=== PATIENT | male | born 1950 | race Caucasian/White ===

== ENCOUNTER 2019-06-29 13:13 | Outpatient (CLI) | payer OTHER, SELFPAY ==
--- NOTE | ~2019-06-29 | CT_ITS ---
EXAMINATION: CT soft tissue neck chest w EXAM DATE: 06/29/2019 14:57 INDICATION: Lymphoma. TECHNIQUE: Spiral CT of the neck and chest was performed following intravenous injection of 75 mL Omn ipaque 350. Axial, coronal and sagittal images of the neck were reviewed. Axial, coronal and sagitt al images of the chest were reviewed. Coronal maximum intensity pixel images of chest reviewed. The dose-length product (DLP) for this examination was 956.07 mGy-cm. The exposure was tailored accordi ng to patient size (auto mA exposure control), and iterative reconstruction (ASIR) was used as additi onal dose reduction technique. Comparison is made to prior examination from 01/02/2019. FINDINGS: NECK: There is a right-sided Chemo-Port. The thyroid gland is unremarkable. The submandibular and parotid glands are symmetric. There is no cervical lymphadenopathy. There are no masses identified . The airway is unremarkable. Parapharyngeal and pre-glottic fat planes are preserved. Mild bi lateral carotid bulb arterial sclerosis without stenosis. Congenitally aberrant right subclavian salomón ry. Dense aortic valve calcifications. Patient has had right-sided ocular lens surgery. Visualized sinuses and mastoid air cells are well aerated. There is cervical spondylosis. CHEST: There is mild emphysema. There are mild fibrotic changes. No suspicious pulmonary opacificatio ns. There are no pleural or pericardial effusions. Some opacity in the trachea probably debris in the dependent posterior aspect. There is no mediastinal, hilar or axillary lymphadenopathy. There is no pneumothorax. Heart normal in size. There is mild coronary arterial calcification, arterial sclerosis. There is 9 mm right adrenal gland lesion probably adenoma. Diffusely sclerotic-appearing vertebral bodies without cortical destruction, could be something physiologic. Differential diagnosi s includes renal osteodystrophy, myelosclerosis, mastocytosis, infiltrative malignancy less likely. P atient has diffuse idiopathic skeletal hyperostosis (DISH). IMPRESSION: 1. No cervical or thoracic lymphadenopathy. 2. Chronic osteosclerosis, other findings above. Reviewed, dictated and finalized at location A.
[2019-06-29 14:36] LABS: Estimated Glomerular Filt Rate > 60
== END 2019-06-29 13:14 | disposition home or self-care (01) ==
PROVIDERS: PCP Internal Medicine; Visit Provider Internal Medicine Hematology & Oncology
DX: C82.91 Follicular lymphoma, unspecified, lymph nodes of head, face, and neck (principal)
CPT/HCPCS: 36415; 70491; 71260; Q9967

== ENCOUNTER 2019-07-06 13:16 | Outpatient (CLI) | payer OTHER, SELFPAY ==
[2019-07-06 13:31] LABS: Basophils Percent Auto 0.3 % (0.2-1.2); Eosinophils Absolute Auto 0.1 K/mm3 (0-0.3); Eosinophils Percent Auto 0.7 % (0-4.4); Hematocrit 43.1 % (42.0-52.0); Hemoglobin 14.5 g/dL (14.0-18.0); Immature Granulocyte Absolute 0.03 K/mm3 (0.00-0.031); Immature Granulocyte Percent A 0.3 % (0-0.5); Lymphocytes Absolute Auto 1.08 K/mm3 (0.9-3.2); Lymphocytes Percent Auto 11.8 % (18.3-44.2); Mean Corpuscular HGB Conc 33.6 g/dl (32-36); Mean Corpuscular Hemoglobin 33.6 pg (26-34); Mean Platelet Volume 9.6 fl (7.4-10.4); Monocytes Absolute Auto 0.7 K/mm3 (0.1-0.6); Neutrophils Absolute Auto 7.2 K/mm3 (1.3-6.7); Neutrophils Percent Auto 78.9 % (45.5-73.1); Platelet Count Result 154 k/mm3 (150-375); Red Blood Count 4.31 M/mm3 (4.6-6.20); Red Cell Distribution Width 12.2 % (11.5-14.5); White Blood Count 9.2 K/mm3 (4.5-10.0)
[2019-07-06 13:38] LABS: Blood Urea Nitrogen 8 mg/dL (8-26); Carbon Dioxide 26 mmol/L (22-30); Chloride 102 mmol/L (98-109); Estimated Glomerular Filt Rate > 60; Glucose 114 mg/dL (70-105); Potassium 4.4 mmol/L (3.5-4.9); Sodium 140 mmol/L (138-146)
[2019-07-06 16:20] LABS: Alanine Aminotransferase 11 U/L (4-50); Albumin Level 4.3 g/dL (3.5-5.1); Alkaline Phosphatase 128 U/L (38-126); Aspartate Amino Transferase 17 U/L (17-59); Bilirubin,Total 0.5 mg/dL (0.2-1.3); Blood Urea Nitrogen 9 mg/dL (9-20); Calcium 9.3 mg/dL (8.4-10.2); Carbon Dioxide 26 mmol/L (22-30); Chloride 103 mmol/L (98-107); Estimated Glomerular Filt Rate > 60; Glucose 108 mg/dL (75-110); Lactate Dehydrogenase 350 U/L (313-618); Potassium 4.6 mmol/L (3.4-5.0); Sodium 138 mmol/L (137-145)
== END 2019-07-06 13:17 | disposition home or self-care (01) ==
LOC: ANHLAB 13:19
PROVIDERS: PCP Internal Medicine; Visit Provider Internal Medicine Hematology & Oncology
DX: C82.91 Follicular lymphoma, unspecified, lymph nodes of head, face, and neck (principal)
CPT/HCPCS: 36415; 80048; 80053; 83615; 85025

== ENCOUNTER 2020-01-04 13:56 | Outpatient (CLI) | payer OTHER, SELFPAY ==
[2020-01-04 14:12] LABS: Basophils Percent Auto 0.5 % (0.2-1.2); Eosinophils Absolute Auto 0.1 K/mm3 (0-0.3); Eosinophils Percent Auto 1.6 % (0-4.4); Hematocrit 44.3 % (42.0-52.0); Immature Granulocyte Absolute 0.02 K/mm3 (0.00-0.031); Immature Granulocyte Percent A 0.2 % (0-0.5); Lymphocytes Absolute Auto 1.43 K/mm3 (0.9-3.2); Lymphocytes Percent Auto 16.2 % (18.3-44.2); Mean Corpuscular HGB Conc 33.9 g/dl (32-36); Mean Corpuscular Volume 97.6 fl (80-100); Mean Platelet Volume 9.6 fl (7.4-10.4); Monocytes Absolute Auto 0.6 K/mm3 (0.1-0.6); Monocytes Percent Auto 7.1 % (2.6-8.5); Neutrophils Absolute Auto 6.6 K/mm3 (1.3-6.7); Neutrophils Percent Auto 74.4 % (45.5-73.1); Platelet Count Result 190 k/mm3 (150-375); Red Blood Count 4.54 M/mm3 (4.6-6.20); Red Cell Distribution Width 12.2 % (11.5-14.5); White Blood Count 8.8 K/mm3 (4.5-10.0)
[2020-01-04 17:15] LABS: Alanine Aminotransferase 12 U/L (4-50); Albumin Level 4.3 g/dL (3.5-5.1); Alkaline Phosphatase 169 U/L (38-126); Anion Gap 10 mmol/L (8-16); Aspartate Amino Transferase 21 U/L (17-59); Bilirubin,Total 0.8 mg/dL (0.2-1.3); Blood Urea Nitrogen 13 mg/dL (9-20); Calcium 9.8 mg/dL (8.4-10.2); Carbon Dioxide 26 mmol/L (22-30); Chloride 104 mmol/L (98-107); Estimated Glomerular Filt Rate > 60; Glucose 104 mg/dL (75-110); Lactate Dehydrogenase 353 U/L (313-618); Potassium 4.4 mmol/L (3.4-5.0); Sodium 140 mmol/L (137-145)
== END 2020-01-04 13:57 | disposition home or self-care (01) ==
LOC: ANHLAB 13:58
PROVIDERS: PCP Internal Medicine; Visit Provider Internal Medicine Hematology & Oncology
DX: C82.91 Follicular lymphoma, unspecified, lymph nodes of head, face, and neck (principal)
CPT/HCPCS: 36415; 80053; 83615; 85025

== ENCOUNTER 2020-06-27 14:08 | Outpatient (CLI) | payer OTHER, SELFPAY ==
[2020-06-27 14:26] LABS: Basophils Percent Auto 0.4 % (0.2-1.2); Eosinophils Absolute Auto 0.1 K/mm3 (0-0.3); Eosinophils Percent Auto 1.2 % (0-4.4); Hematocrit 46.5 % (42.0-52.0); Hemoglobin 15.6 g/dL (14.0-18.0); Immature Granulocyte Absolute 0.03 K/mm3 (0.00-0.031); Immature Granulocyte Percent A 0.4 % (0-0.5); Lymphocytes Absolute Auto 1.45 K/mm3 (0.9-3.2); Lymphocytes Percent Auto 17.6 % (18.3-44.2); Mean Corpuscular HGB Conc 33.5 g/dl (32-36); Mean Corpuscular Hemoglobin 33.3 pg (26-34); Mean Corpuscular Volume 99.1 fl (80-100); Mean Platelet Volume 9.9 fl (7.4-10.4); Monocytes Absolute Auto 0.6 K/mm3 (0.1-0.6); Monocytes Percent Auto 7.3 % (2.6-8.5); Neutrophils Percent Auto 73.1 % (45.5-73.1); Platelet Count Result 176 k/mm3 (150-375); Red Blood Count 4.69 M/mm3 (4.6-6.20); Red Cell Distribution Width 12.8 % (11.5-14.5); White Blood Count 8.2 K/mm3 (4.5-10.0)
[2020-06-27 16:35] LABS: Alanine Aminotransferase 11 U/L (4-50); Albumin Level 4.3 g/dL (3.5-5.1); Alkaline Phosphatase 141 U/L (38-126); Anion Gap 7 mmol/L (8-16); Aspartate Amino Transferase 19 U/L (17-59); Bilirubin,Total 0.5 mg/dL (0.2-1.3); Blood Urea Nitrogen 9 mg/dL (9-20); Calcium 9.5 mg/dL (8.4-10.2); Carbon Dioxide 30 mmol/L (22-30); Chloride 102 mmol/L (98-107); Estimated Glomerular Filt Rate > 60; Glucose 96 mg/dL (75-110); Lactate Dehydrogenase 343 U/L (313-618); Potassium 4.7 mmol/L (3.4-5.0); Sodium 139 mmol/L (137-145)
== END 2020-06-27 14:09 | disposition home or self-care (01) ==
LOC: ANHLAB 14:10
PROVIDERS: PCP Internal Medicine; Visit Provider Internal Medicine Hematology & Oncology
DX: C82.91 Follicular lymphoma, unspecified, lymph nodes of head, face, and neck (principal)
CPT/HCPCS: 36415; 80053; 83615; 85025

== ENCOUNTER 2020-07-07 15:08 | Outpatient (CLI) | payer OTHER, SELFPAY ==
--- NOTE | ~2020-07-07 | CT_ITS ---
EXAMINATION: CT soft tissue neck chest w DATE: 07/07/2020 16:18 INDICATION: Lymphoma. TECHNIQUE: Computed tomography (CT) of the neck and chest was performed with 75 mL Omnipaque-350 intr avenous contrast. Automated exposure control and iterative reconstruction technique were employed. Th e dose-length product was 2606.74 mGy-cm. COMPARISON: CT neck and chest 06/29/2019 FINDINGS: CT NECK: There are likely changes of right ocular lens replacement surgery. There are no pathological ly enlarged lymph nodes. There is plaque in the proximal internal carotid arteries with less than 50% stenosis relative to normal distal artery lumen diameters. There is severe cervical spondylosis. The re are bridging endplate osteophytes at multiple levels in the spine, consistent with diffuse idiopat hic skeletal hyperostosis (DISH). There is extensive dental disease. CT CHEST: There is mild scarring at the lung apices. There is mild emphysema. There is chronic mild p eripheral septal thickening in the lungs with a lower lung predominance. No bronchiectasis or honeyco mbing. No pleural effusion. There is an aberrant right subclavian artery. The heart size is normal. T here are calcifications of the aortic valve. No pericardial effusion. There is a small sliding hiatal hernia. There is a right internal jugular port with tip in superior vena cava. There are bridging en dplate osteophytes at multiple levels in the spine, consistent with diffuse idiopathic skeletal hyper ostosis (DISH). There is a chronic compression fracture of T12. IMPRESSION: 1. No evidence of lymphoma. Reviewed, dictated and finalized at location A. IMPRESSION: 1. No evidence of lymphoma.
== END 2020-07-07 15:09 | disposition home or self-care (01) ==
PROVIDERS: PCP Internal Medicine; Visit Provider Internal Medicine Hematology & Oncology
DX: C82.91 Follicular lymphoma, unspecified, lymph nodes of head, face, and neck (principal)
CPT/HCPCS: 70491; 71260; Q9967

== ENCOUNTER 2021-01-04 14:23 | Outpatient (CLI) | payer OTHER, SELFPAY ==
[2021-01-04 14:45] LABS: Basophils Percent Auto 0.4 % (0.2-1.2); Eosinophils Absolute Auto 0.1 K/mm3 (0-0.3); Eosinophils Percent Auto 1.3 % (0-4.4); Hematocrit 42.2 % (42.0-52.0); Hemoglobin 13.6 g/dL (14.0-18.0); Immature Granulocyte Absolute 0.02 K/mm3 (0.00-0.031); Immature Granulocyte Percent A 0.2 % (0-0.5); Lymphocytes Absolute Auto 1.36 K/mm3 (0.9-3.2); Mean Corpuscular HGB Conc 32.2 g/dl (32-36); Mean Corpuscular Hemoglobin 32.2 pg (26-34); Mean Platelet Volume 9.8 fl (7.4-10.4); Monocytes Absolute Auto 0.7 K/mm3 (0.1-0.6); Monocytes Percent Auto 6.7 % (2.6-8.5); Neutrophils Absolute Auto 7.5 K/mm3 (1.3-6.7); Neutrophils Percent Auto 77.4 % (45.5-73.1); Platelet Count Result 146 k/mm3 (150-375); Red Blood Count 4.22 M/mm3 (4.6-6.20); Red Cell Distribution Width 14.1 % (11.5-14.5); White Blood Count 9.7 K/mm3 (4.5-10.0)
[2021-01-04 14:49] LABS: Blood Urea Nitrogen 9 mg/dL (8-26); Carbon Dioxide 26 mmol/L (22-30); Chloride 102 mmol/L (98-109); Estimated Glomerular Filt Rate 46; Glucose 107 mg/dL (70-105); Potassium 4.4 mmol/L (3.5-4.9); Sodium 142 mmol/L (138-146)
[2021-01-04 16:07] LABS: Alanine Aminotransferase 10 U/L (4-50); Albumin Level 4.3 g/dL (3.5-5.1); Alkaline Phosphatase 163 U/L (38-126); Anion Gap 11 mmol/L (8-16); Aspartate Amino Transferase 19 U/L (17-59); Bilirubin,Total 0.7 mg/dL (0.2-1.3); Blood Urea Nitrogen 10 mg/dL (9-20); Calcium 9.7 mg/dL (8.4-10.2); Carbon Dioxide 27 mmol/L (22-30); Chloride 104 mmol/L (98-107); Estimated Glomerular Filt Rate 50; Glucose 104 mg/dL (65-110); Lactate Dehydrogenase 361 U/L (313-618); Potassium 4.5 mmol/L (3.4-5.0); Sodium 142 mmol/L (137-145)
[2021-01-07 17:12] LABS: GGT 15 U/L (3-70)
== END 2021-01-04 14:24 | disposition home or self-care (01) ==
PROVIDERS: PCP Internal Medicine; Visit Provider Internal Medicine Hematology & Oncology
DX: C82.91 Follicular lymphoma, unspecified, lymph nodes of head, face, and neck (principal)
CPT/HCPCS: 36415; 80048; 80053; 82977; 83615; 85025

== ENCOUNTER 2021-03-17 10:37 | Outpatient (CLI) | payer OTHER, SELFPAY ==
--- NOTE | 2021-03-17 | ECG_ITS ---
Measurements Intervals Jack Rate: 76 P: 52 ID: [id number] QRS: 54 QRSD: 81 T: 91 QT: 424 QTc: 477 Interpretive Statements SINUS RHYTHM WITH FIRST DEGREE AV BLOCK VOLTAGE CRITERIA FOR LVH BORDERLINE T WAVE ABNORMALITY- HIGH LATERAL LEADS ABNORMAL ECG Electronically Signed On 03-17-2021 11:10:24 PORTFOLIO ASSISTANT by Moy Givens D.O.
== END 2021-03-17 10:38 | disposition home or self-care (01) ==
LOC: ANHCARD 10:42
PROVIDERS: PCP Internal Medicine; Visit Provider Internal Medicine Cardiovascular Disease
DX: R06.00 Dyspnea, unspecified (principal)
CPT/HCPCS: 93005

== ENCOUNTER 2021-04-11 09:56 | Outpatient (CLI) | payer OTHER, SELFPAY ==
--- NOTE | ~2021-04-11 | NM_ITS ---
EXAMINATION: NM mei stress w perfusion DATE: 04/11/2021 12:40 INDICATION: Dyspnea TECHNIQUE: Rest images were obtained following intravenous administration of 9.4 mCi Tc99m tetrofosmi n (Myoview). The patient was infused intravenously with Lexiscan (Regadenoson). Then, 30 mCi Tc99m te trofosmin (Myoview) was administered intravenously, and stress images were obtained. Data was reconst ructed into short axis and horizontal and vertical long axis SPECT images. Gated SPECT images were al so obtained. COMPARISON: None. FINDINGS: There is no definite reversible or fixed perfusion abnormality to suggest ischemia or infar ction. There is left ventricular enlargement with calculated end-diastolic volume of 209 mL. Moderat scott decreased left ventricular ejection fraction measuring 39% with no focal pulmonary abnormalities. IMPRESSION: 1. Normal myocardial perfusion at rest and during stress. 2. Left ventricular enlargement with moderately decreased left ventricular ejection fraction measurin g 39%. Reviewed, dictated and finalized at location A. EWATER TREATMENT OPERATOR IMPRESSION: 1. Normal myocardial perfusion at rest and during stress. 2. Left ventricular enlargement with moderately decreased left ventricular ejec tion fraction measuring 39%.
--- NOTE | 2021-04-11 10:04 | EST_ITS ---
Patient Info Name: Rosales Treadwell Age: 70 years : 1950 Gender: Male Ht: 71 in Wt: 188 lbs BSA: 2.08 m2 HR: 61 bpm BP: 107 / 54 mmHg Heart Rhythm: Sinus Rhythm Exam Date: 04/11/2021 11:16 AM Exam Location: [facility] Stress Patient Status: Outpatient Admit Date: 04/11/2021 Staff Ordering Physician: Moy Givens DO Attending Provider: Moy Givens DO Exercise Technologist: Kim Corado CT Exercise Physician: Moy Givens DO Exam Type: CA stress mei w NM Study Info Indications R06.00 - Dyspnea, unspecified A regadenoson stress test was performed. Summary 1. 1. Negative lexiscan stress test for ischemic ST changes by ECG criteria. 2. 2. Stable hemodynamics throughout the test. 3. 3. Nuclear scan to follow and will be reported separately. Please correlate with it. 4. 4. Patient informed of the above results. Protocol: Lexiscan Stress ECG Details Stage: REST Duration (min): 1 min : 10 sec HR (bpm): 61 SBP (mmHg): 107 DBP (mmHg): 54 Stage: REST Duration (min): 12 min : 21 sec HR (bpm): 70 SBP (mmHg): 107 DBP (mmHg): 54 Stage: STAGE 1 Duration (min): 1 min : 0 sec HR (bpm): 72 SBP (mmHg): 129 DBP (mmHg): 61 Stage: RECOVERY Duration (min): 1 min : 0 sec HR (bpm): 85 SBP (mmHg): 129 DBP (mmHg): 61 Stage: RECOVERY Duration (min): 2 min : 0 sec HR (bpm): 81 SBP (mmHg): 129 DBP (mmHg): 61 Stage: RECOVERY Duration (min): 3 min : 0 sec HR (bpm): 76 SBP (mmHg): 133 DBP (mmHg): 67 Stage: RECOVERY Duration (min): 3 min : 1 sec HR (bpm): 76 SBP (mmHg): 133 DBP (mmHg): 67 Rest HR: 70 bpm Peak HR: 88 bpm Rest Sys BP: 107 mmHg Peak Sys BP: 133 mmHg Max Pred HR: 150 bpm % Max Pred HR: 59 % Target HR: 128 bpm Max RPP: 11,704 bpm*mmHg Termination Reason: Completed protocol Cardiac Symptoms: Chest discomfort Total Time: 1 min : 0 sec Rest Wagner BP: 54 mmHg Peak Wagner BP: 67 mmHg Total Dose: 0.4 mg Resting ECG Sinus rhythm, borderline T wave abnormality in high lateral leads. Stress ECG No ST changes. Arrhythmias None. Report Signatures
== END 2021-04-11 09:57 | disposition home or self-care (01) ==
LOC: ANHCARD 10:01
PROVIDERS: PCP Internal Medicine; Visit Provider Internal Medicine Cardiovascular Disease
DX: R06.00 Dyspnea, unspecified (principal)
CPT/HCPCS: 78452; 93017; A9502; J2785

== ENCOUNTER 2021-04-12 14:11 | Outpatient (CLI) | payer OTHER, SELFPAY ==
[2021-04-12 14:25] LABS: Basophils Absolute Auto 0.1 K/mm3 (0.0-0.1); Basophils Percent Auto 0.6 % (0.2-1.2); Eosinophils Absolute Auto 0.1 K/mm3 (0-0.3); Eosinophils Percent Auto 1.3 % (0-4.4); Hematocrit 44.7 % (42.0-52.0); Immature Granulocyte Absolute 0.02 K/mm3 (0.00-0.031); Immature Granulocyte Percent A 0.2 % (0-0.5); Lymphocytes Absolute Auto 1.43 K/mm3 (0.9-3.2); Lymphocytes Percent Auto 16.9 % (18.3-44.2); Mean Corpuscular HGB Conc 31.3 g/dl (32-36); Mean Corpuscular Hemoglobin 32.1 pg (26-34); Mean Corpuscular Volume 102.5 fl (80-100); Mean Platelet Volume 10.2 fl (7.4-10.4); Monocytes Absolute Auto 0.6 K/mm3 (0.1-0.6); Monocytes Percent Auto 7.1 % (2.6-8.5); Neutrophils Absolute Auto 6.2 K/mm3 (1.3-6.7); Neutrophils Percent Auto 73.9 % (45.5-73.1); Platelet Count Result 179 k/mm3 (150-375); Red Blood Count 4.36 M/mm3 (4.6-6.20); Red Cell Distribution Width 13.2 % (11.5-14.5); White Blood Count 8.4 K/mm3 (4.5-10.0)
[2021-04-12 14:29] LABS: Blood Urea Nitrogen 11 mg/dL (8-26); Carbon Dioxide 27 mmol/L (22-30); Chloride 100 mmol/L (98-109); Estimated Glomerular Filt Rate 50; Glucose 94 mg/dL (70-105); Sodium 137 mmol/L (138-146)
[2021-04-12 17:40] LABS: Alanine Aminotransferase 11 U/L (4-50); Albumin Level 4.2 g/dL (3.5-5.1); Alkaline Phosphatase 144 U/L (38-126); Anion Gap 4 mmol/L (8-16); Aspartate Amino Transferase 23 U/L (17-59); Bilirubin,Total 0.6 mg/dL (0.2-1.3); Blood Urea Nitrogen 11 mg/dL (9-20); Calcium 9.4 mg/dL (8.4-10.2); Carbon Dioxide 28 mmol/L (22-30); Chloride 103 mmol/L (98-107); Estimated Glomerular Filt Rate 55; Glucose 97 mg/dL (65-110); Lactate Dehydrogenase 374 U/L (313-618); Potassium 5.2 mmol/L (3.4-5.0); Sodium 135 mmol/L (137-145)
== END 2021-04-12 14:12 | disposition home or self-care (01) ==
LOC: ANHLAB 14:13
PROVIDERS: PCP Internal Medicine; Visit Provider Internal Medicine Hematology & Oncology
DX: C82.91 Follicular lymphoma, unspecified, lymph nodes of head, face, and neck (principal)
CPT/HCPCS: 36415; 80053; 83615; 85025

== ENCOUNTER 2021-09-25 01:50 | Day surgery (SDC) | payer OTHER, SELFPAY ==
[2021-09-22 12:28] VITALS: BMI 23.7
[2021-09-25] VITALS (12 sets, daily range): BP systolic 90–120; BP diastolic 67–97; PULSE 74–100; RESP 14–18; TEMP 36.4; O2SAT 92–100; BMI 22.4
--- NOTE | 2021-09-25 10:14 | ECHO_ITS ---
Patient Info Name: Rosales Treadwell Age: 71 years : 1950 Gender: Male Ht: 71 in Wt: 160 lbs BSA: 1.91 m2 HR: 95 bpm Exam Date: 09/25/2021 10:58 AM Exam Location: [facility] Pulmonary Patient Status: Outpatient Admit Date: 09/25/2021 Staff Ordering Physician: Moy Givens DO Artificial Flowers Dyer: Peterson Fagan RDCS, RT Attending Provider: Moy Givens DO Referring Physician: Chon GUERRA; Exam Type: CA echo transesophageal Study Info Indications I35.0 - Nonrheumatic aortic (valve) stenosis Complete two-dimensional, color flow and Doppler transesophageal study is performed. Procedure Details Risks/benefits/alternative treatment to AFRICA discuss with patient and he is agreeable for procedure. He was monitored electrocardiographically, vitals. He is in sinus rhythm at 100 bpm, BP 115/80 mmHg, puls ox>95% throughout the procedure. Given Cetacaine spray x 2 to posterior oropharynx. Given Versed 2 mg and Fentanyl 50 mcg IV for conscious sedation. AFRICA probe advanced to posterior oropharynx and he swallowed probe without incident. Multiple images obtained in esophagus. Agitated saline administered to assess atrial septum. A[place] probe withdrawn and no blood noted on AFRICA probe tip. Patient tolerted procedure well with no complications. Summary 1. Left ventricular chamber dimension is severely enlarged. 2. Left ventricular systolic function is severely reduced with an ejection fraction of 20-25%. 3. The left ventricular diastolic function is indeterminate as it was not assessed. 4. Right ventricular chamber dimension is mildly enlarged. 5. Right ventricular systolic function is moderately reduced. 6. Left atrial chamber dimension is severely enlarged. 7. Right atrial chamber dimension is moderately enlarged. 8. There is severe aortic valve sclerosis. 9. There is critical aortic valve stenosis with valve area measured at 0.5 cm2 by planimetry. 10. There is moderate aortic valve regurgitation. 11. There is moderate mitral valve regurgitation. 12. There is mild tricuspid valve regurgitation. Left Ventricle Left ventricular systolic function is severely reduced with an ejection fraction of 20-25%. The left ventricular diastolic function is indeterminate as it was not assessed. Left ventricular chamber dimension is severely enlarged. Right Ventricle Right ventricular chamber dimension is mildly enlarged. Right ventricular systolic function is moderately reduced. Left Atria Left atrial chamber dimension is severely enlarged. Right Atria Right atrial chamber dimension is moderately enlarged. Atrial Appendage There is no thrombus visualized in the left atrial appendage. Aortic Valve There is critical aortic valve stenosis with valve area measured at 0.5 cm2 by planimetry. The aortic valve is trileaflet. There is severe aortic valve sclerosis. There is moderate aortic valve regurgitation. Pulmonic Valve There is no pulmonic regurgitation. Mitral Valve There is no mitral valve stenosis. There is moderate mitral valve regurgitation. Tricuspid Valve RVSP is not assessed. There is mild tricuspid valve regurgitation. Pericardium/Pleural There is no pericardial effusion. Inferior Vena Cava Inferior vena cava is not well visualized. Aorta The aortic root size at the sinus of Valsalva is normal. Report Signatures
== END 2021-09-25 13:35 | disposition home or self-care (01) ==
PROVIDERS: PCP Internal Medicine; Visit Provider Internal Medicine Cardiovascular Disease
PROC: (CPT 93312; principal; 2021-09-25 10:45)
DX: I35.0 Nonrheumatic aortic (valve) stenosis (principal); I35.8 Other nonrheumatic aortic valve disorders; I35.1 Nonrheumatic aortic (valve) insufficiency; I34.0 Nonrheumatic mitral (valve) insufficiency; I36.1 Nonrheumatic tricuspid (valve) insufficiency; I11.9 Hypertensive heart disease without heart failure; R06.00 Dyspnea, unspecified; Z85.72 Personal history of non-Hodgkin lymphomas; Z92.21 Personal history of antineoplastic chemotherapy; Z87.891 Personal history of nicotine dependence; Z79.51 Long term (current) use of inhaled steroids
CPT/HCPCS: 93312; 93320; 93325; J2250; J2310; J3010; J7030

== ENCOUNTER 2021-10-10 14:00 | Outpatient (CLI) | payer OTHER, SELFPAY ==
[2021-10-10 14:20] LABS: Basophils Percent Auto 0.1 % (0.2-1.2); Eosinophils Percent Auto 0.1 % (0-4.4); Hematocrit 51.4 % (42.0-52.0); Hemoglobin 16.8 g/dL (14.0-18.0); Immature Granulocyte Absolute 0.03 K/mm3 (0.00-0.031); Immature Granulocyte Percent A 0.3 % (0-0.5); Lymphocytes Absolute Auto 0.89 K/mm3 (0.9-3.2); Lymphocytes Percent Auto 9.2 % (18.3-44.2); Mean Corpuscular HGB Conc 32.7 g/dl (32-36); Mean Corpuscular Hemoglobin 31.1 pg (26-34); Mean Corpuscular Volume 95.2 fl (80-100); Monocytes Absolute Auto 0.5 K/mm3 (0.1-0.6); Monocytes Percent Auto 5.3 % (2.6-8.5); Neutrophils Absolute Auto 8.3 K/mm3 (1.3-6.7); Platelet Count Result 125 k/mm3 (150-375); Red Cell Distribution Width 14.3 % (11.5-14.5); White Blood Count 9.7 K/mm3 (4.5-10.0)
[2021-10-10 14:20] LABS: Blood Urea Nitrogen 50 mg/dL (8-26); Carbon Dioxide 24 mmol/L (22-30); Chloride 100 mmol/L (98-109); Estimated Glomerular Filt Rate 31; Glucose 113 mg/dL (70-105); Ionized Calcium (POC) 1.05 mmol/L (1.11-1.31); Potassium 5.7 mmol/L (3.5-4.9); Sodium 132 mmol/L (138-146)
[2021-10-10 16:14] LABS: Alanine Aminotransferase 103 U/L (6-50); Alkaline Phosphatase 132 U/L (38-126); Anion Gap 16 mmol/L (8-16); Aspartate Amino Transferase 82 U/L (17-59); Bilirubin,Total 2.3 mg/dL (0.2-1.3); Blood Urea Nitrogen 56 mg/dL (9-20); Calcium 9.6 mg/dL (8.4-10.2); Carbon Dioxide 22 mmol/L (22-30); Chloride 92 mmol/L (98-107); Estimated Glomerular Filt Rate 35; Glucose 111 mg/dL (65-110); Lactate Dehydrogenase 234 U/L (120-246); Potassium 5.5 mmol/L (3.4-5.0); Sodium 130 mmol/L (137-145)
== END 2021-10-10 14:01 | disposition home or self-care (01) ==
LOC: ANHLAB 14:01
PROVIDERS: PCP Family Medicine; Visit Provider Internal Medicine Hematology & Oncology
DX: C82.91 Follicular lymphoma, unspecified, lymph nodes of head, face, and neck (principal)
CPT/HCPCS: 36415; 80047; 80053; 83615; 85025; 85055

== ENCOUNTER 2021-10-10 15:02 | Inpatient (IN) | payer OTHER, SELFPAY ==
[2021-10-10] VITALS (13 sets, daily range): BP systolic 93–101; BP diastolic 73–75; PULSE 72–96; RESP 16–35; TEMP 36.2–36.7; O2SAT 97–100; BMI 19.1
--- NOTE | ~2021-10-10 | CT_ITS ---
EXAMINATION: CT chest abdomen pelvis wo con DATE: 10/10/2021 16:30 INDICATION: Cancer screening. History of lymphoma. TECHNIQUE: Computed tomography (CT) of the chest and abdomen and pelvis was performed without intrave nous contrast. Automated exposure control and iterative reconstruction technique were employed. Exam dose: 778.52 mGy-cm total exam DLP. COMPARISON: 01/02/2019 CT chest abdomen pelvis FINDINGS: CHEST CT: There are moderately large bilateral pleural effusions, right greater than left. There is associated bilateral lower lobe dependent atelectasis. There are mild emphysematous changes of the lungs. There is mild peripheral reticulation which may be consistent with mild usual interstitial pneumonia interstitial fibrosis. Bilateral apical scarring and minimal calcification. Aberrant right subclavian artery, congenital variant. Mild cardiomegaly. No pericardial effusion. No hilar or mediastinal mass lesion or lymphadenopathy is noted. There are calcified paratracheal and right hilar nodes consistent with old pulmonary granulom atous disease. ABDOMEN CT: The liver, gallbladder, bile ducts, pancreas, pancreatic duct, and adrenal glands and kidneys are unr emarkable on this limited noncontrast examination. There is atherosclerotic calcification but normal caliber of the abdominal aorta. There is atheroscle rotic calcification of the iliac and femoral arteries. No intraperitoneal or retroperitoneal or pelvic mass lesion or adenopathy. Minimal free fluid accumul ation in the dependent pelvis. There is prominent prostate enlargement as well as some prostate calci fications. There is diffuse mildly prominent bladder wall thickening likely secondary to prostatomega ly. No evidence of appendicitis is noted. No bowel obstruction or free air is detected. Bilateral glenohumeral osteoarthritis, particularly severe on the left. Hardware is noted in the prox imal left humerus. Prominent degenerative disc disease of the lower cervical spine. C6-7 disc space fusion. Diffuse idiopathic skeletal hyperostosis of the thoracic and lumbar spine. T12 biconcave compression fracture deformity. Mild biconcave L1 and L2 vertebral bodies. Moderately p rominent biconcave compression fracture from L3. Moderate compression fracture deformity of L4. Sever e burst fracture deformity of L5. Transitional first sacral vertebra. IMPRESSION: A moderately large bilateral pleural effusions, new since 03/04/2018. Increased heart size . Emphysema Prostatomegaly, bladder outlet obstruction with bladder wall thickening Diffuse idiopathic skeletal hyperostosis and multiple fracture from is a thoracic and lumbar spine, r elatively stable since 2019 Reviewed, dictated and finalized at Location A. Reviewed, dictated and finalized at location B. IMPRESSION: A moderately large bilateral pleural effusions, new since 03/04/2018 . Increased heart size. Emphysema Prostatomegaly, bladder outlet obstruction with bladder wall thickening Diffuse idiopathic skeletal hyperostosis and multiple fracture from is a thorac ic and lumbar spine, relatively stable since 2019
--- NOTE | ~2021-10-10 | US_ITS ---
US renal BI 10/11/2021 10:50 Procedure: Realtime transabdominal ultrasound of the kidneys and bladder. Indication: Acute renal failure Comparison: No prior studies for comparison. Findings: Renal echotexture is normal bilaterally without hydronephrosis, contour deforming mass or r enal calculus. The right kidney measures 9.5 cm and left kidney measures 8.4 cm. Bladder wall is mild ly thickened and irregular. Prostate gland is enlarged. Impression: 1: Mildly thickened irregular shaped bladder wall, possibly due to outlet obstruction from enlarged p rostate or cystitis. Reviewed, dictated and finalized at location A. Impression: 1: Mildly thickened irregular shaped bladder wall, possibly due to outlet obstr uction from enlarged prostate or cystitis.
--- NOTE | ~2021-10-10 | XR_ITS ---
XR chest 2V 10/10/2021 15:49 Indication: Dyspnea Procedure: 2 view chest Comparison: Comparison to multiple prior studies sequentially, with oldest reviewed study dated 01/03. Findings: Cardiomegaly. Port catheter tip in the SVC. Diffuse bilateral airspace disease. Small pleur al effusions. Impression: 1: Diffuse bilateral airspace disease which may represent edema or pneumonia. 2: Cardiomegaly. Reviewed, dictated and finalized at location A. Impression: 1: Diffuse bilateral airspace disease which may represent edema or pneumonia. 2: Cardiomegaly.
--- NOTE | ~2021-10-10 | US_ITS ---
EXAMINATION: US venous doppler [facility] DATE: 10/11/2021 10:48 INDICATION: Lower limb swelling. TECHNIQUE: Grayscale ultrasound images without and with compression and Doppler ultrasound images of the bilateral lower extremity veins were obtained. COMPARISON: None. FINDINGS: The visualized portions of right common femoral vein, profunda (deep) femoral vein, femoral vein, pop liteal vein, peroneal veins, posterior tibial veins, and greater saphenous vein outflow are patent. The visualized portions of left common femoral vein, profunda femoral vein, popliteal vein, peroneal veins, posterior tibial veins, and greater saphenous vein outflow are patent. There is thrombus in le ft femoral vein. IMPRESSION: 1. Deep vein thrombosis involving left femoral vein. Reviewed, dictated and finalized at location A.
--- NOTE | 2021-10-10 15:15 | ED.RECABL ---
HPI - Recheck/Abnormal Lab/Rx General Chief Complaint: Recheck/Abnormal Lab/Rx Stated Complaint: pcp sent here - blood tests, blood is messed up Time Seen by Provider: 10/10/21 15:15 History of Present Illness HPI narrative: The patient is a 71-year-old male with a history of diffuse large B lymphoma, aortic valve stenosis, hypertension presenting to the emergency department for evaluation of shortness of breath. Patient reportedly has been short of breath over the past 2 weeks and symptoms are worsened with exertion. He denies fever, chills, cough, hemoptysis. He denies noted wheezing. He denies known history of COVID, denies significant runny nose, sinus congestion or sore throat. Per Dr. Vicente, pt presented for 6 month follow up and has had an unintentional 20 lb weight loss and dyspnea. Pt finished chemotherapy in 2019. Pt has had ongoing maintenance but did not wish for a CT scan at his previous followup appointment 6 months ago. Pt with outpatient labs showing JOSE and hyperkalemia. Related Data Home Medications Medication Instructions Recorded Confirmed multivitamin with iron 1 tablet PO DAILY 09/14/21 10/10/21 omega 4-znv-xkk-fish oil 60 mg-90 1 cap PO DAILY 09/14/21 10/10/21 mg-500 mg capsule (Fish Oil) Allergies Allergy/AdvReac Type Severity Reaction Status Date / Time Penicillins Allergy Mild rash Verified 10/10/21 15:19 Review of Systems Review of Systems: CONSTITUTIONAL: Denies fever, chills, or sweats. EYES: Denies visual changes, redness, or discharge. ENT: Denies rhinorrhea, congestion, sore throat, or otalgia. CARDIOVASCULAR:Denies chest pain or palpitations, report lower extremity edema RESPIRATORY: Denies cough, reports dyspnea GASTROINTESTINAL: Denies abdominal pain, nausea, vomiting, or diarrhea. GENITOURINARY: Denies dysuria or hematuria. SKIN: Denies rash or itching. MUSCULOSKELETAL: Denies back pain, joint pain, or myalgia. NEUROLOGIC: Denies headache, numbness, or weakness. 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 Currently chews tobacco.lives with and has 3 children.retired [employer]. Smoking packs per day: 1 Smoking cigarettes per day: 20.0 Years smoked: 25 Smoking pack-years: 25.00 Smoking status: Former smoker Tobacco type: cigarettes Smokeless tobacco user: chewing tobacco Second hand tobacco smoke exposure: No Additional smoking assessment comments: pt quit smoking in the 80's Alcohol intake: current Alcohol use details: once in a great while Substance use: never Substance use type: does not use Spiritual care concerns: No Exam Narrative: GENERAL: Awake, alert, conversant, cachectic appearing HEAD: Normocephalic, atraumatic. EYES: PERRLA and EOMI. ENT: Nares clear, no rhinorrhea or epistaxis. Mucous membranes dry. NECK: Supple. CHEST: Patient i
--- NOTE | 2021-10-10 15:34 | PC.NURSE ---
Dr. Newman at bedside to assess pt.
--- NOTE | 2021-10-10 15:35 | ECG_ITS ---
Measurements Intervals [place] Rate: 83 P: 45 AK: 211 QRS: 64 QRSD: 92 T: 222 QT: 373 QTc: 439 Interpretive Statements SINUS RHYTHM WITH FIRST DEGREE AV BLOCK POSSIBLE LEFT ATRIAL ENLARGEMENT [-0.1mV P-WAVE IN V1/V2] LEFT VENTRICULAR HYPERTROPHY AND ST-T CHANGE [VOLTAGE CRITERIA PLUS ST/T ABNORMALITY] ATYPICAL ST ELEVATION IS PRESENT IN V3 AND V4, POSSIBLY SECONDARY TO LVH, PERICARDITIS ETC.. COMPARED TO ECG 03/17/2021 11:02:53 ST (T WAVE) DEVIATION NOW PRESENT Electronically Signed On 10-10-2021 16:47:52 CDT by Brandee Myers M.D.
[2021-10-10] MEDS: SODIUM CHLORIDE 0.9% IV 500 ML 999 ML IV CONT (16:12)
[2021-10-10 16:31] LABS: Lactic Acid Reflex 3.1 mmol/L (0.7-2.0)
[2021-10-10 16:44] LABS: INR 2.5; Partial Thromboplastin Time 30.8 SECONDS (22.3-36.8); Prothrombin Time 26.1 Seconds (11.1-14.7)
[2021-10-10 16:56] LABS: SARS-CoV-2 RNA PCR Negative
[2021-10-10 17:34] LABS: Anion Gap 13 mmol/L (8-16); Blood Urea Nitrogen 56 mg/dL (9-20); Calcium 9.2 mg/dL (8.4-10.2); Carbon Dioxide 23 mmol/L (22-30); Chloride 92 mmol/L (98-107); Estimated CRCL calculation 31 ml/min; Estimated Glomerular Filt Rate 35; Glucose 93 mg/dL (65-110); Potassium 5.3 mmol/L (3.4-5.0); Sodium 128 mmol/L (137-145)
--- NOTE | 2021-10-10 17:35 | PC.NURSE ---
Attempted to collect urine sample. Patient states I don't have to go right now. I'll go when I go . aware.
[2021-10-10 17:48] LABS: Troponin I 0.072 ng/mL (0.000-0.034)
[2021-10-10 17:49] LABS: D Dimer 3.59 ug/mL (<0.48)
[2021-10-10 17:55] LABS: NT Pro B Type Natriuretic Pept > 35000 pg/mL (5-100)
--- NOTE | 2021-10-10 18:28 | PM.IMHP ---
H&P: HPI History of Present Illness Date/Time: 10/10/21 18:28 Chief Complaint: Abnormal labs Narrative: This is a 71-year-old male patient who has a history of having large B cell lymphoma, aortic valve stenosis, and hypertension. The patient came to the emergency room to be evaluated for shortness of breath. He has been short of breath for the last 2 weeks and is worsened with exertion. ( The patient also has a history of congestive heart failure with an echo noted to be 46% on 02/06/2021. He has moderate to severe and mild MR/TR, large pleural effusion.). He sees . His D-dimer was noted to be 3.59. Sodium was initially 132 and is now 128. Potassium was 5.7 now 5.3. Initially his BUN is 50 and creatinine 2.1 repeat was 56 and 1.9. Estimated GFR is in the 30s today with her previous value of 50 did 46. Lactic was slightly elevated at 2.5. Liver enzymes are elevated. Troponin noted to be 0.072. BNP greater than 35,000. He was found to be negative for COVID today. CT of the chest abdomen and pelvis was read as the following ?A moderately large bilateral pleural effusions, new since 03/04/2018. Increased heart size. Emphysema Prostatomegaly, bladder outlet obstruction with bladder wall thickening Diffuse idiopathic skeletal hyperostosis and multiple fracture from is a thoracic and lumbar spine, relatively stable since 2019 According to ER notes they spoke with Dr. Callahan, patient presented for 6 month follow-up and has had an unintentional 20 lb weight loss and dyspnea. Patient finished chemotherapy in 2019. The patient has had ongoing maintenance but did not wish for CT scan as previous follow-up appointment 6 months ago. The patient was started on vancomycin in the emergency room, Lasix, and IV fluids. The patient is being admitted for observation status on the date of service 10/10/2021. Review of Systems Review of Systems: See history of present illness All systems reviewed & are unremarkable except as noted in HPI and below Constitutional: Constitutional: Reports as per HPI and Reports no additional constitutional complaints Eyes: Eyes: Reports as per HPI and Reports no additional eye complaints ENT: Reports system reviewed and no additional complaints, except as documented and Reports Normal hearing present Cardiovascular: Cardiovascular: Reports no additional cardiovascular complaints Respiratory: Respiratory: Reports no additional respiratory complaints and Reports no additional respiratory complaints Gastrointestinal: Gastrointestinal: Reports as per HPI and Reports no additional gastrointestinal complaints Musculoskeletal: Musculoskeletal: Reports no additional musculoskeletal complaints Integumentary/Breasts: Skin/Breast: Reports system reviewed and no additional complaints, except as docu and Reports as per HPI Neurologic: Reports system reviewed and no additional complaints, except as documented, Reports as per HPI and Reports Normal hearing present Psychiatric: Psychiatric: Reports no additional psychiatric complaints and Reports as per HPI Endocrine: Endocrine: Reports no additional endocrine complaints Hematologic/Lymphatic: Hematologic/Lymphatic: Reports no additional hematologic/lymphatic complaints Allergic/Immunologic: Allergic/Immunologic: Reports no additional allergic/immunologic complaints [facility] Past Medical History Medical History (Updated 10/10/21 @ 21:50 by Marta Persaud NP) Aortic stenosis Chewing tobacco nicotine dependence without complication GOODSON (dyspnea on exertion) Essential hypertension with goal blood pressure less than 130/80 History of colon polyps Non-Hodgkin lymphoma in remission Screening, lipid 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
--- NOTE | 2021-10-10 19:00 | PC.NURSE ---
This patient, Rosales Treadwell, was admitted to IMU Room 202-. Patient/family oriented to hospital policies and general routines including ID bracelet, bed and alarms, visiting hours, pain management, procedures, bathroom and other care routines, personal items, smoking policy, room service/diet, and visiting hours. Information on how to activate the Rapid Response Team has been discussed. Patient/Family are encouraged to report perceived risks to care and to ask questions if they do not understand what they are told or what they should do.
[2021-10-10] MEDS: FUROSEMIDE INJ 40 MG/4 ML VIAL 20 MG IV PUSH (19:13)
[2021-10-10 19:17] LABS: Reflex Lactic Acid Yes or No Add Lactic
[2021-10-10 20:15] LABS: INR 2.5; Prothrombin Time 26.3 Seconds (11.1-14.7)
[2021-10-10 20:24] LABS: Lactic Acid 2.5 mmol/L (0.7-2.0)
[2021-10-10 20:27] LABS: Albumin Level 3.8 g/dL (3.5-5.1); Bilirubin,Total 2.3 mg/dL (0.2-1.3); Lactate Dehydrogenase 241 U/L (120-246)
[2021-10-10 21:57] LABS: Troponin I 0.076 ng/mL (0.000-0.034)
[2021-10-10 22:07] LABS: Anion Gap 17 mmol/L (8-16); Blood Urea Nitrogen 55 mg/dL (9-20); Calcium 9.5 mg/dL (8.4-10.2); Carbon Dioxide 22 mmol/L (22-30); Chloride 91 mmol/L (98-107); Estimated CRCL calculation 30 ml/min; Estimated Glomerular Filt Rate 37; Glucose 110 mg/dL (65-110); Potassium 5.1 mmol/L (3.4-5.0); Sodium 130 mmol/L (137-145)
[2021-10-10 23:48] LABS: Lactic Acid Reflex 2.1 mmol/L (0.7-2.0)
[2021-10-11] VITALS (16 sets, daily range): BP systolic 87–109; BP diastolic 52–78; PULSE 65–100; RESP 15–20; TEMP 36.2–36.6; O2SAT 99–100
--- NOTE | 2021-10-11 | ECHO_ITS ---
Patient Info Name: Rosales Treadwell Age: 71 years : 1950 Gender: Male Ht: 71 in Wt: 147 lbs BSA: 1.82 m2 HR: 86 bpm BP: 102 / 52 mmHg Heart Rhythm: Sinus Rhythm Technical Quality: Fair Exam Date: 10/11/2021 8:33 AM Exam Location: [facility] Pulmonary Patient Status: Outpatient Admit Date: 10/10/2021 Staff Ordering Physician: Yael Kim MD Natural Resource Manager: Ashley Duff RDCS Attending Provider: Sb Shelby MD Referring Physician: Judy DREW; Exam Type: CA echo dop color flow w con Study Info Indications J91.8 - Pleural effusion in other conditions classified elsewhere Complete two-dimensional, color flow and Doppler transthoracic echocardiogram is performed with contrast to opacify the left ventricle and to improve the deliniation of the left ventricle endocardial borders. Contrast/Agitated Saline Contrast/Ag. Saline: Definity Amount: 3.00 ml Administered By: Ashley Duff RDCS Existing IV Access: Yes IV Access Condition: patent with no signs of infiltration Summary 1. Left ventricular chamber dimension is severely enlarged. 2. Definity contrast administered improved wall motion interpretation. 3. Left ventricular systolic function is severely reduced, estimated at 20-25%. 4. The left ventricular diastolic function is indeterminate. 5. Right ventricular systolic function is moderately reduced and with abnormal TAPSE 1.0 cm. 6. Right ventricular chamber dimension is mildly enlarged. 7. Left atrial chamber dimension is mildly enlarged. 8. Right atrial chamber dimension is mildly enlarged. 9. There is severe aortic valve sclerosis. 10. There is critical aortic valve stenosis with a peak velocity of 313.74 cm/s, mean gradient of 22 mmHg, and aortic valve area of 0.58 cm2. Dimensionless index of 0.18 is suggestive of severe aortic stenosis in setting of LV dysfunction. 11. There is mild to moderate aortic valve regurgitation. 12. The mitral valve has mildly calcified annulus. 13. There is mild to moderate mitral valve regurgitation. 14. There is mild tricuspid valve regurgitation. 15. Mild pulmonary hypertension, estimated pulmonary arterial systolic pressure is 44 mmHg. 16. Normal inferior vena cava with <50% collapse upon inspiration consistent with elevated right atrial pressure, 10 mmHg. 17. Large pleural effusion noted. Left Ventricle Tissue doppler E/e' was not calculated. Definity contrast administered improved wall motion interpretation. Left ventricular chamber dimension is severely enlarged. Left ventricular systolic function is severely reduced, estimated at 20-25%. The left ventricular diastolic function is indeterminate. Right Ventricle Right ventricular systolic function is moderately reduced and with abnormal TAPSE 1.0 cm. Right ventricular chamber dimension is mildly enlarged. Left Atria Left atrial chamber dimension is mildly enlarged. Right Atria Right atrial chamber dimension is mildly enlarged. Aortic Valve There is critical aortic valve stenosis with a peak velocity of 313.74 cm/s, mean gradient of 22 mmHg, and aortic valve area of 0.58 cm2. Dimensionless index of 0.18 is suggestive of severe aortic stenosis in setting of LV dysfunction. The aortic valve is trileaflet. There is severe aortic valve sclerosis. There is mild to moderate aortic valve regurgitation. Pulmonic Valve There is no pulmonic regurgitation. Mitral Valve The mitral valve has mildly calcified annul
[2021-10-11 00:02] LABS: Troponin I 0.069 ng/mL (0.000-0.034)
[2021-10-11 01:20] LABS: Appearance Urine Clear (Clear); Bilirubin Urine Negative (Negative); Blood Urine Negative (Negative); Color Urine Yellow (Yellow); Glucose Urine UA Negative (Negative); Ketones Urine Negative (Negative); Leukocyte Esterase Ur Negative LEU/UL (Negative); Nitrate Urine Negative (Negative); Protein Urine Negative (Negative); Urobilinogen Urine 0.2 mg/dL (<2.0); pH Urine 5.5 (5.0-9.0)
[2021-10-11 01:22] LABS: Bacteria Urine Trace /hpf; Hyaline Casts Urine 20-29 /lpf; Mucus Urine Rare /lpf; RBC Urine 0-2 /hpf (0-2); Squamous Epithelial Cell Urine Rare /hpf (Few); WBC Urine 0-3 /hpf
[2021-10-11 01:24] LABS: Add Urine Microscopic? YES
[2021-10-11 05:29] LABS: Basophils Percent Auto 0.1 % (0.2-1.2); Eosinophils Percent Auto 0.3 % (0-4.4); Hematocrit 44.2 % (42.0-52.0); Hemoglobin 14.5 g/dL (14.0-18.0); Immature Granulocyte Absolute 0.04 K/mm3 (0.00-0.031); Immature Granulocyte Percent A 0.5 % (0-0.5); Immature Platelet Fraction Pct 9.7 % (0.9-11.2); Lymphocytes Absolute Auto 1.06 K/mm3 (0.9-3.2); Lymphocytes Percent Auto 13.3 % (18.3-44.2); Mean Corpuscular HGB Conc 32.8 g/dl (32-36); Mean Corpuscular Hemoglobin 30.9 pg (26-34); Mean Platelet Volume 11.7 fl (7.4-10.4); Monocytes Absolute Auto 0.7 K/mm3 (0.1-0.6); Monocytes Percent Auto 8.3 % (2.6-8.5); Neutrophils Absolute Auto 6.2 K/mm3 (1.3-6.7); Neutrophils Percent Auto 77.5 % (45.5-73.1); Platelet Count Result 99 k/mm3 (150-375); Red Cell Distribution Width 14.5 % (11.5-14.5)
[2021-10-11 05:48] LABS: Alanine Aminotransferase 84 U/L (6-50); Albumin Level 3.2 g/dL (3.5-5.1); Alkaline Phosphatase 104 U/L (38-126); Anion Gap 10 mmol/L (8-16); Aspartate Amino Transferase 54 U/L (17-59); Blood Urea Nitrogen 52 mg/dL (9-20); CRP 1.6 mg/dL (<1.0); Calcium 8.6 mg/dL (8.4-10.2); Carbon Dioxide 27 mmol/L (22-30); Chloride 94 mmol/L (98-107); Estimated CRCL calculation 32 ml/min; Estimated Glomerular Filt Rate 40; Glucose 78 mg/dL (65-110); Magnesium 2.4 mg/dL (1.6-2.3); Potassium 4.3 mmol/L (3.4-5.0); Sodium 131 mmol/L (137-145)
--- NOTE | 2021-10-11 07:46 | PM.CNCAR ---
Assessment and Plan Assessment and plan (1) Dyspnea: Code(s): R06.00 - Dyspnea, unspecified Status: Acute Assessment and Plan: Probably related to large pleural effusion with severe systolic dysfunction and critical aortic stenosis. Plan for thoracentesis for diagnostic and therapeutic purposes given history of NHL and weight loss. (2) Acute renal failure: Code(s): N17.9 - Acute kidney failure, unspecified Status: Acute Assessment and Plan: Monitor. (3) Elevated troponin I level: Code(s): R77.8 - Other specified abnormalities of plasma proteins Status: Acute Assessment and Plan: Mildly elevated and flat up to .076. (4) Systolic dysfunction: Code(s): I51.9 - Heart disease, unspecified Status: Acute Assessment and Plan: Severe dysfunction. Appears intravascularly dry. Low normal BP and therfore holding beta nicole and Rafael inhibitor. (5) Critical stenosis of aortic valve: Code(s): I35.0 - Nonrheumatic aortic (valve) stenosis Status: Acute Assessment and Plan: Will need right and left heart cath once kidney function improves close to baseline. Then will need transfer to facility for Aortic valve replacement with/without CABG. Discuss this with patient and he would like to go [facility] for it. Since we are waiting on kidney function to stabilize, we can transfer patient and once kidney function stabilizes, both heart cath and AVR can be done at [facility]. History of Present Illness History of Present Illness Consult date/time: 10/11/21 07:46 Reason For Visit: Pleural effusions/dyspnea/JOSE Narrative: 71 yr ol man who is my regular cardiology patient who's PCP is Dr. Duenas presents to ER due to have sob last night. He has a history of critical aortic stenosis, systolic heart failure, hypertension, NHL in remission and had chemotherapy, former smoker. States he had felt sob all of a sudden last night. Currently while lying in bed he has no sob. Reports he has some [place] . He can walk up to 1 block only and limited by GOODSON. He noted more swelling of ankles and legs. He has had unintentional weight loss of 20 pounds in last 6 months. Denies chest pain, sob, orthopnea, PND, dizziness, palpitations. Cardiovascular Procedures Echo/MUGA:: 09/25/21 [place]: EF 20-25%, severe LVE, mild RVE, mod RV dysfunction, severe LAE, mod HETAL, severe aortic valve sclerosis, critical (OMER 0.5 cm2 by planimetry), mod AI, mod MR, mild TR. 02/06/21 [place] Echo: EF 46%, septa, apical and inferior hypokinesis, mild RVE, mod-severe (OMER 0.8 cm2, mean 31 mmHg), mild MR/TR, large pleural effusion. Electrophysiology:: 03/17/20 EKG: Sinus rhythm with first degree AV block, LVH, borderline T wave abnormality in high lateral leads. Stress Tests:: 04/11/21 Lexiscan myoview: Negative. EF 39%. Review of Systems Review of Systems: All systems reviewed & are unremarkable except as noted in HPI and below Constitutional: Constitutional: Reports as per HPI, Denies chills, Reports fatigue and Denies fever(s) Cardiovascular: Cardiovascular: Reports as per HPI, Denies chest pain and Denies lightheadedness Respiratory: Respiratory: Reports as per HPI and Reports dyspnea Gastrointestinal: Gastrointestinal: Reports as per HPI and Denies abdominal pain Genitourinary: Genitourinary: Reports as per HPI and Denies dysuria Musculoskeletal: Musculoskeletal: Reports as per HPI Neurologic: Reports as per HPI, Denies dizziness and Denies syncope [facility] Past Medical History Medical History (Updated 10/11/21 @ 08:00 by Moy Givens, DO) Aortic stenosis Chewing tobacco nicotine dependence without complication GOODSON (dyspnea on exertion) Essential hypertension with goal blood pressure less than 130/80 History of colon polyps Non-Hodgkin lymphoma in remission Screening, lipid 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
[2021-10-11] MEDS: OMEGA 3 POLYUNSAT FATTY ACIDS 1 GM CAP PO (08:12)
[2021-10-11] MEDS: THERAPEUTIC MULTIVITAMINS/MINERALS TAB (*BKC) 1 TABLET PO (08:12)
[2021-10-11] MEDS: PERFLUTREN LIPID MICROSPHERES 1.5 ML VIAL DILUTED TO 10 ML TOTAL VOLUME IV PUSH (09:30)
[2021-10-11] MEDS: UMECLIDINIUM/VILANTEROL 62.5-25 MCG ELLIPTA 1 PUFF INHALATION (10:55)
[2021-10-11] MEDS: FONDAPARINUX SODIUM 5 MG/0.4 ML SYRINGE SUB-Q (13:28)
[2021-10-11 13:36] LABS: Lactic Acid Reflex 1.8 mmol/L (0.7-2.0)
[2021-10-11 13:38] LABS: INR 2.1; Prothrombin Time 23.1 Seconds (11.1-14.7)
--- NOTE | 2021-10-11 18:41 | PM.IMPN ---
Progress Note: A&P Assessment and Plan (1) Pleural effusion: Code(s): J90 - Pleural effusion, not elsewhere classified Status: Acute Assessment and Plan: Need thoracentesis aborted due to coagulopathy. -according to the echo that the patient had performed at [facility] on 02/06/2021 a large pleural effusion was noted at that time. With an EF of 46% now ejection fraction is down to 20-25%. Likely due to CHF (2) Acute renal failure: Code(s): N17.9 - Acute kidney failure, unspecified Status: Acute Assessment and Plan: -hold any nephrotoxic medications including lisinopril. -patient initially was given a L of fluid which has improved his renal failure some. -continue to monitor renal function -currently BUN is 56 and creatinine 1.9 GFR is 35. Initial creatinine 2.1 baseline creatinine around 1.3 2.4 -renal ultrasound with mildly thickened irregular shaped bladder wall possibly due to outlet obstruction from enlarged prostate or cystitis. UA negative. Flomax creatinine slowly improving (3) Congestive heart failure: Code(s): I50.9 - Heart failure, unspecified Status: Acute Assessment and Plan: -transesophageal echo from 09/25/2021 was read as the following ?1. Left ventricular chamber dimension is severely enlarged. ? 2. Left ventricular systolic function is severely reduced with an ejection fraction of 20-25%. ? 3. The left ventricular diastolic function is indeterminate as it was not assessed. ? 4. Right ventricular chamber dimension is mildly enlarged. ? 5. Right ventricular systolic function is moderately reduced. ? 6. Left atrial chamber dimension is severely enlarged. ? 7. Right atrial chamber dimension is moderately enlarged. ? 8. There is severe aortic valve sclerosis. ? 9. There is critical aortic valve stenosis with valve area measured at 0.5 cm2 by planimetry. ? 10. There is moderate aortic valve regurgitation. ? 11. There is moderate mitral valve regurgitation. ? 12. There is mild tricuspid valve regurgitation. -the patient was given IV Lasix in the emergency room. Dr. Ramos consulted Discussed with him. BNP elevated. Needs to consider for aortic valve replacement once stable. Needs right and left heart catheterization. Awaiting renal function to recover (4) Elevated troponin I level: Code(s): R77.8 - Other specified abnormalities of plasma proteins Status: Acute Assessment and Plan: -continue to trend -patient was complaining of shortness of breath but no chest pain. 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 -oncology/hematology has been consulted also is found to have left femoral vein DVT suspicious for underlying malignancy (6) Essential hypertension with goal blood pressure less than 130/80: Code(s): I10 - Essential (primary) hypertension Status: Acute Assessment and Plan: lisinopril (7) Aortic stenosis: Code(s): I35.0 - Nonrheumatic aortic (valve) stenosis Status: Acute Assessment and Plan: -Dr.. leo has been consulted needs AVR Plan hypotension: ?cause. vancomycin empirically due to possilbe sepsis. also has lactic acid. blood culture pending. left femoral vein DVT: discussed with oncology. on arixtra 5 mg daily. thrombocytopenai. hit panel planned per oncology. bladder out let obstruction: will add flomax 0.4 mg daily. Additional Plan Impressions Chest X-Ray 10/10/21 15:54 Impression: 1: Diffuse bilateral airspace disease which may represent edema or pneumonia. 2: Cardiomegaly. Chest/Abdomen/Pelvis CT 10/10/21 16:45 IMPRESSION: A moderately large bilateral pleural effusions, new since 03/04/2018. Increased heart s
--- NOTE | 2021-10-11 18:49 | PDONCCN ---
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 He was seen in the office yesterday and was complaining of excessive tiredness and fatigue. He lost almost 20 lb weight in last 6 months duration. He was complaining of shortness of breath as well. Labs showed elevated potassium and renal insufficiency. CT chest abdomen and pelvis showed moderately large bilateral pleural effusion with enlarged prostate and no evidence of lymphadenopathy. Platelet count came back low at 99,000 nine thousand. Potassium improved to normal. Lower extremity Doppler study showed DVT involving the left femoral vein. Patient has been having poor appetite. He remains quite tired and fatigued. 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olic dysfunction Surgical History: Surgical History (Last Updated 10/10/21 @ 21:26 by Marta Persaud NP) H/O cataract extraction H/O rectal polypectomy H/O shoulder surgery History of surgery on arm History of tonsillectomy and adenoidectomy S/P ORIF (open reduction internal fixation) fracture left humerus Family History: Family History (Last Reviewed 10/10/21 @ 18:34 by Marta Persaud NP) Sibling Family history of obesity Father Family history of malignant neoplasm Patient's father is Mother Family history of malignant neoplasm Patient's mother is Other Family history of cardiovascular disease - Social History Social History: Social History (Last Updated 10/10/21 @ 21:29 by Marta Persaud NP) Alcohol Use: Alcohol intake: current Drinks per week: 1 Alcohol use details: once in a great while Substance Use: Substance use: never Substance use type: does not use Others: Spiritual care concerns: No Smoking Status: Smoking status: Former smoker Tobacco type: cigarettes Smokeless tobacco user: chewing tobacco Second hand tobacco smoke exposure: No Smoking Pack-years: Smoking packs per day: 1 Smoking cigarettes per day: 20.0 Years smoked: 25 Smoking pack-years: 25.00 Comments: Additional smoking assessment comments: pt quit smoking in the s Meds Home Medications Medication Instructions Recorded Confirmed Type umeclidinium 62.5 mcg-vilanterol 1 inh inhalation DAILY #60 ea 03/13/21 10/10/21 Rx 25 mcg/actuation powdr for inhalation (Anoro Ellipta) lisinopril 2.5 mg tablet 2.5 mg PO DAILY #90 tabs 05/08/21 10/10/21 Rx multivitamin with iron 1 tablet PO DAILY 09/14/21 10/10/21 History omega 4-rfp-qeo-fish oil 60 mg-90 1 cap PO DAILY 09/14/21 10/10/21 History mg-500 mg capsule (Fish Oil) Allergies Allergy/AdvReac Type Severity Reaction Status Date / Time Penicillins Allergy Mild rash Verified 10/10/21 15:19 Results - Labs CBC & Chem 7: 10/11/21 04:39 10/11/21 04:39 Labs: Short CBC 10/11/21 Range/Units 04:39 WBC 8.0 (4.5-10.0)
[2021-10-12] VITALS (8 sets, daily range): BP systolic 91–104; BP diastolic 63–79; PULSE 77–101; RESP 16–24; TEMP 36.4–36.5; O2SAT 96–100
[2021-10-12 05:34] LABS: Basophils Percent Auto 0.1 % (0.2-1.2); Eosinophils Percent Auto 0.1 % (0-4.4); Hematocrit 47.5 % (42.0-52.0); Hemoglobin 15.4 g/dL (14.0-18.0); Immature Granulocyte Absolute 0.03 K/mm3 (0.00-0.031); Immature Granulocyte Percent A 0.4 % (0-0.5); Immature Platelet Fraction Pct 9.6 % (0.9-11.2); Lymphocytes Absolute Auto 0.88 K/mm3 (0.9-3.2); Lymphocytes Percent Auto 10.5 % (18.3-44.2); Mean Corpuscular HGB Conc 32.4 g/dl (32-36); Mean Corpuscular Hemoglobin 30.9 pg (26-34); Mean Corpuscular Volume 95.2 fl (80-100); Mean Platelet Volume 11.3 fl (7.4-10.4); Monocytes Absolute Auto 0.8 K/mm3 (0.1-0.6); Monocytes Percent Auto 8.9 % (2.6-8.5); Neutrophils Absolute Auto 6.7 K/mm3 (1.3-6.7); Platelet Count Result 112 k/mm3 (150-375); Red Blood Count 4.99 M/mm3 (4.6-6.20); Red Cell Distribution Width 14.6 % (11.5-14.5); White Blood Count 8.4 K/mm3 (4.5-10.0)
[2021-10-12 05:41] LABS: Alanine Aminotransferase 78 U/L (6-50); Albumin Level 3.5 g/dL (3.5-5.1); Alkaline Phosphatase 119 U/L (38-126); Anion Gap 12 mmol/L (8-16); Aspartate Amino Transferase 51 U/L (17-59); Blood Urea Nitrogen 52 mg/dL (9-20); Calcium 8.6 mg/dL (8.4-10.2); Carbon Dioxide 23 mmol/L (22-30); Chloride 98 mmol/L (98-107); Estimated CRCL calculation 30 ml/min; Estimated Glomerular Filt Rate 37; Glucose 109 mg/dL (65-110); Magnesium 2.5 mg/dL (1.6-2.3); Potassium 4.2 mmol/L (3.4-5.0); Sodium 133 mmol/L (137-145)
[2021-10-12 08:42] LABS: INR 2.7; Prothrombin Time 27.4 Seconds (11.1-14.7)
[2021-10-12] MEDS: THERAPEUTIC MULTIVITAMINS/MINERALS TAB (*BKC) 1 TABLET PO (09:56)
[2021-10-12] MEDS: OMEGA 3 POLYUNSAT FATTY ACIDS 1 GM CAP PO (09:56)
[2021-10-12] MEDS: MEGESTROL ACETATE (*CHEMO) 20 MG TABLET PO (09:57)
[2021-10-12] MEDS: TAMSULOSIN HCL 0.4 MG CAPSULE PO (09:57)
[2021-10-12] MEDS: FONDAPARINUX SODIUM 5 MG/0.4 ML SYRINGE SUB-Q (09:59)
[2021-10-12] MEDS: UMECLIDINIUM/VILANTEROL 62.5-25 MCG ELLIPTA 1 PUFF INHALATION (10:01)
--- NOTE | 2021-10-12 10:55 | PM.IMPN ---
Progress Note: A&P Assessment and Plan (1) Pleural effusion: Code(s): J90 - Pleural effusion, not elsewhere classified Status: Acute Assessment and Plan: Need thoracentesis however canceled due to coagulopathy. -according to the echo that the patient had performed at [facility] on 02/06/2021 a large pleural effusion was noted at that time. With an EF of 46% now ejection fraction is down to 20-25%. Likely due to CHF (2) Acute renal failure: Code(s): N17.9 - Acute kidney failure, unspecified Status: Acute Assessment and Plan: -hold any nephrotoxic medications including lisinopril. -patient initially was given a L of fluid which has improved his renal failure some. -continue to monitor renal function -currently BUN is 56 and creatinine 1.9 GFR is 35. Initial creatinine 2.1 baseline creatinine around 1.3 2.4 -renal ultrasound with mildly thickened irregular shaped bladder wall possibly due to outlet obstruction from enlarged prostate or cystitis. UA negative. Flomax creatinine slowly improving Nephrology consultation (3) Congestive heart failure: Code(s): I50.9 - Heart failure, unspecified Status: Acute Assessment and Plan: -transesophageal echo from 09/25/2021 was read as the following ?1. Left ventricular chamber dimension is severely enlarged. ? 2. Left ventricular systolic function is severely reduced with an ejection fraction of 20-25%. ? 3. The left ventricular diastolic function is indeterminate as it was not assessed. ? 4. Right ventricular chamber dimension is mildly enlarged. ? 5. Right ventricular systolic function is moderately reduced. ? 6. Left atrial chamber dimension is severely enlarged. ? 7. Right atrial chamber dimension is moderately enlarged. ? 8. There is severe aortic valve sclerosis. ? 9. There is critical aortic valve stenosis with valve area measured at 0.5 cm2 by planimetry. ? 10. There is moderate aortic valve regurgitation. ? 11. There is moderate mitral valve regurgitation. ? 12. There is mild tricuspid valve regurgitation. -the patient was given IV Lasix in the emergency room. Dr. Ramos consulted Discussed with him. BNP elevated. Needs to consider for aortic valve replacement once stable. Needs right and left heart catheterization. Awaiting renal function to recover [facility] his aortic stenosis in congestive heart failure (4) Elevated troponin I level: Code(s): R77.8 - Other specified abnormalities of plasma proteins Status: Acute Assessment and Plan: -continue to trend -patient was complaining of shortness of breath but no chest pain. 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 -oncology/hematology has been consulted also is found to have left femoral vein DVT suspicious for underlying malignancy Right chest wall port in place (6) Essential hypertension with goal blood pressure less than 130/80: Code(s): I10 - Essential (primary) hypertension Status: Acute Assessment and Plan: lisinopril on hold due to renal dysfunction and also due to hypotension/borderline blood pressure (7) Aortic stenosis: Code(s): I35.0 - Nonrheumatic aortic (valve) stenosis Status: Acute Assessment and Plan: -Dr.. leo has been consulted needs AVR Plan # hypotension: ?cause. vancomycin empirically due to possilbe sepsis. also has lactic acid. blood culture with gram-positive cocci. 03/07 # left femoral vein DVT: discussed with oncology. on arixtra 5 mg daily. thrombocytopenai. hit panel order which is pending # bladder out let obstruction: Added flomax 0.[address]
--- NOTE | 2021-10-12 12:20 | PM.PNCARD ---
Progress Note: A&P Assessment and Plan (1) Dyspnea: Code(s): R06.00 - Dyspnea, unspecified Status: Acute Assessment and Plan: Probably related to large pleural effusion with severe systolic dysfunction and critical aortic stenosis. Plan for thoracentesis for diagnostic and therapeutic purposes given history of NHL and weight loss. (2) Acute renal failure: Code(s): N17.9 - Acute kidney failure, unspecified Status: Acute Assessment and Plan: Monitor. (3) Elevated troponin I level: Code(s): R77.8 - Other specified abnormalities of plasma proteins Status: Acute Assessment and Plan: Mildly elevated and flat up to .076. (4) Systolic dysfunction: Code(s): I51.9 - Heart disease, unspecified Status: Acute Assessment and Plan: Severe dysfunction could be due to . Appears intravascularly dry. Low normal BP and therfore holding beta nicole and Rafael inhibitor. (5) Critical stenosis of aortic valve: Code(s): I35.0 - Nonrheumatic aortic (valve) stenosis Status: Acute Assessment and Plan: Will need right and left heart cath once kidney function improves close to baseline. Then will need transfer to facility for Aortic valve replacement with/without CABG. Discuss this with patient and he would like to go [facility] for it. Since we are waiting on kidney function to stabilize, we can transfer patient and once kidney function stabilizes, both heart cath and AVR can be done at [facility]. I have placed a call, awaiting call back from their transfer line. (6) Left femoral vein DVT: Code(s): I82.412 - Acute embolism and thrombosis of left femoral vein Status: Acute Subjective Date/time seen: 10/12/21 12:20 Denies chest pain or sob at rest. Exam Const: General: cooperative and comfortable Resp: Auscultation: no crackles, no rales, no rhonchi, no wheezes and diminished lung sounds Cardio: Jugular venous distension: no JVD Rate: regular rate Rhythm: regular rhythm Heart sounds: Murmur heart sound present (II/ systolic murmur RICS) Peripheral pulses: dorsalis pedis present GI: GI Palp: No abdominal tenderness and Yes Soft to palpation Neuro: General: oriented to person, oriented to place and oriented to time Extrem: Right lower extremity: no edema Left lower extremity: no edema Objective Data Vital Signs Vital Signs: Vital Signs - 24 hr 10/11/21 14:00 10/11/21 16:00 10/11/21 16:00 Temperature 97.5 F L Pulse Rate 68 76 Respiratory Rate 16 Blood Pressure 106/67 Pulse Oximetry 99 Oxygen Delivery Room Air 10/11/21 16:00 10/11/21 18:00 10/11/21 20:00 Temperature 97.2 F L Pulse Rate 74 89 90 Respiratory Rate 20 Blood Pressure 101/78 Pulse Oximetry 100 Oxygen Delivery 10/11/21 20:00 10/11/21 20:00 10/11/21 22:00 Temperature Pulse Rate 94 100 Respiratory Rate Blood Pressure Pulse Oximetry Oxygen Delivery Room Air 10/12/21 00:00 10/12/21 00:00 10/12/21 00:00 Temperature 97.7 F Pulse Rate 98 101 H Respiratory Rate 20 Blood Pressure 103/78 Pulse Oximetry 99 Oxygen Delivery Room Air 10/12/21 02:00 10/12/21 04:00 10/12/21 04:00 Temperature Pulse Rate 88 86 Respiratory Rate Blood Pressure Pulse Oximetry Oxygen Delivery Room Air 10/12/21 04:00 10/12/21 06:00 10/12/21 08:00 Temperature 97.7 F 97.6 F Pulse Rate 86 77 80 Respiratory Rate 16 16 Blood Pressure 99/64 L 91/63 L Pulse Oximetry 98 100 Oxygen Delivery 10/12/21 10:01 10/12/21 08:00 10/12/21 08:00 Temperature Pulse Rate 83 Respiratory Rate Blood Pressure Pulse Oximetry 96 Oxygen Delivery Room Air Room Air 10/12/21 10:00 10/12/21 12:00 10/12/21 12:00 Temperature Pulse Rate 81 95 Respiratory Rate Blood Pressure Pulse Oximetry Oxygen Delivery Room Air 10/12/21 12:00 Temperature 97.6 F Pulse Rat
--- NOTE | 2021-10-12 12:39 | PM.TDS ---
Transfer Discharge Sum: Prov Provider Date of admission: 10/12/21 10:27 Primary care physician: Petersno Ross DO Admitting clinician: Daya Owusu DO Consults: 10/10/21 17:42 Consult to Physician Routine Comment: Consulting Provider: Isaiah Vicente Reason for consultation: dyspnea, gita Has provider been notified: Yes Consult to Physician Routine Comment: Consulting Provider: Moy Givens Reason for consultation: pleural effusions Has provider been notified: Yes 10/12/21 07:54 Consult to Physician Routine Comment: spoke with [email or web address](ER,US) Consulting Provider: Artie Singleton manager call/MD group to consult: Nephrology Reason for consultation: renal failure Has provider been notified: Yes DS: Admitting Diagnosis Discharge Date 10/12/2021 Admitting Diagnosis Shortness of breath DS: Discharge Diagnosis Discharge Diagnosis (1) Pleural effusion: Code(s): J90 - Pleural effusion, not elsewhere classified Status: Acute Assessment and Plan: Need thoracentesis however canceled due to coagulopathy. -according to the echo that the patient had performed at [facility] on 02/06/2021 a large pleural effusion was noted at that time. With an EF of 46% now ejection fraction is down to 20-25%. Likely due to CHF (2) Acute renal failure: Code(s): N17.9 - Acute kidney failure, unspecified Status: Acute Assessment and Plan: -hold any nephrotoxic medications including lisinopril. -patient initially was given a L of fluid which has improved his renal failure some. -continue to monitor renal function -currently BUN is 56 and creatinine 1.9 GFR is 35. Initial creatinine 2.1 baseline creatinine around 1.3 2.4 -renal ultrasound with mildly thickened irregular shaped bladder wall possibly due to outlet obstruction from enlarged prostate or cystitis. UA negative. Flomax creatinine slowly improving Nephrology consultation (3) Congestive heart failure: Code(s): I50.9 - Heart failure, unspecified Status: Acute Assessment and Plan: -transesophageal echo from 09/25/2021 was read as the following ?1. Left ventricular chamber dimension is severely enlarged. ? 2. Left ventricular systolic function is severely reduced with an ejection fraction of 20-25%. ? 3. The left ventricular diastolic function is indeterminate as it was not assessed. ? 4. Right ventricular chamber dimension is mildly enlarged. ? 5. Right ventricular systolic function is moderately reduced. ? 6. Left atrial chamber dimension is severely enlarged. ? 7. Right atrial chamber dimension is moderately enlarged. ? 8. There is severe aortic valve sclerosis. ? 9. There is critical aortic valve stenosis with valve area measured at 0.5 cm2 by planimetry. ? 10. There is moderate aortic valve regurgitation. ? 11. There is moderate mitral valve regurgitation. ? 12. There is mild tricuspid valve regurgitation. -the patient was given IV Lasix in the emergency room. Dr. Ramos consulted Discussed with him. BNP elevated. Needs to consider for aortic valve replacement once stable. Needs right and left heart catheterization. Awaiting renal function to recover [facility] his aortic stenosis in congestive heart failure (4) Elevated troponin I level: Code(s): R77.8 - Other specified abnormalities of plasma proteins Status: Acute Assessment and Plan: -continue to trend -patient was complaining of shortness of breath but no chest pain. 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 -oncology/hematology has been consulted also is found to have left femor
--- NOTE | 2021-10-12 13:54 | PM.PNNEP ---
Subjective Date/time seen: 10/12/21 13:54 Consult received for JOSE/ARF but patient was transferred to [facility] before I could see him. Quality Patient unable to be seen as he was transferred to another hospital.
[2021-10-15 12:59] LABS: Heparin Induced Platelet Antib Negative (Negative)
[2021-10-16 22:12] LABS: PSA, Free 0.35 ng/mL; PSA, Total 0.8 ng/mL (<=4.0)
== END 2021-10-12 13:30 | disposition short-term general hospital (02) | DRG 291 ==
LOC: ANHED 16:28 → ANH2MED 18:07 → ANHIMU 18:17
PROVIDERS: Internal Medicine Hematology & Oncology; Nurse Practitioner; Admitting Provider Student in an Organized Health Care Education/Training Program; Emergency Provider Emergency Medicine; PCP Family Medicine; Visit Provider Internal Medicine
DX: I11.0 Hypertensive heart disease with heart failure (principal); I50.23 Acute on chronic systolic (congestive) heart failure; J90 Pleural effusion, not elsewhere classified; N17.9 Acute kidney failure, unspecified; I82.412 Acute embolism and thrombosis of left femoral vein; R64 Cachexia; E87.1 Hypo-osmolality and hyponatremia; D68.9 Coagulation defect, unspecified; I35.0 Nonrheumatic aortic (valve) stenosis; Z53.09 Procedure and treatment not carried out because of other contraindication; Z20.822 Contact with and (suspected) exposure to COVID-19; E87.5 Hyperkalemia; D69.6 Thrombocytopenia, unspecified; J43.9 Emphysema, unspecified; I95.9 Hypotension, unspecified; N32.0 Bladder-neck obstruction; F17.220 Nicotine dependence, chewing tobacco, uncomplicated; Z85.72 Personal history of non-Hodgkin lymphomas; Z68.20 Body mass index [BMI] 20.0-20.9, adult
CPT/HCPCS: 36415; 71046; 71250; 74176; 76775; 80047; 80048; 80053; 81001; 82040; 82247; 83605; 83615; 83735; 83880; 84153; 84154; 84155; 84484; 85025; 85055; 85380; 85610; 85730; 86022; 86140; 86334; 87040; 87077; 93005; 93970; 94640; 96361; 96365; 96366; 96372; 96375; 99285; A9270; C8929; C9803; G0378; J1652; J1940; J3370; J7030; J7040; Q9957; U0003; U0005